=== PATIENT | male | born 1990 | race Two or more races ===

== ENCOUNTER → 2016-11-23 | Outpatient (REF) | payer OTHER | LOC: M SMT 17:58 | PROVIDERS: ATTEND Urology | DX: Z30.2 Encounter for sterilization (principal) ==

== ENCOUNTER → 2017-02-02 | Outpatient (REF) | payer OTHER ==
[2017-02-02 15:36] LABS: IMMMOTILE SPERM CENTRIFUGED ABSENT (ABSENT); IMMOTILE SPERM ABSENT (ABSENT); MOTILE SPERM ABSENT (ABSENT); MOTILE SPERM CENTRIFUGED ABSENT (ABSENT)
== END ==
LOC: M SMT 13:10 → M LAB REF 13:10
PROVIDERS: ATTEND Urology
DX: Z30.2 Encounter for sterilization (principal)

== ENCOUNTER → 2017-07-28 | Outpatient (CLI) | payer OTHER ==
[~2017-07-28] MED LIST: PROHANCE 279.3MG/ML 15ML VIAL (A9576) As Ordered
== END ==
LOC: M RAD 10:11
DX: E34.8 Other specified endocrine disorders (principal)
CPT/HCPCS: A9576

== ENCOUNTER → 2017-08-16 | Outpatient (REF) | payer OTHER ==
[2017-08-16 14:42] LABS: TOTAL 25(OH) VITAMIN D 30.4 NG/ML (30.0-100.0)
[2017-08-16 14:43] LABS: FOLATE 7.9 NG/ML; TOTAL T3 103.9 NG/DL (60.0-181.0); VITAMIN B12 LEVEL 505 PG/ML
[2017-08-16 14:54] LABS: FREE T4 1.09 NG/DL (0.76-1.46); RHEUMATOID FACTOR QUANT < 10.0 IU/ML (0-15.0); TOTAL PROTEIN 7.7 GM/DL (6.4-8.2)
[2017-08-16 14:54] LABS: CPK CREATINE PHOSPHOKINASE 69 U/L (39-308)
[2017-08-16 15:36] LABS: ERYTHROCYTE SEDIMENTATION RATE 2 mm/hr (0-15)
[2017-08-17 11:29] LABS: ALBUMIN 4.88 GM/DL (3.29-5.55); ALBUMIN % 63.4 % (55.8-66.1); ALPHA-1-GLOBULIN % 3.7 % (2.9-4.9); ALPHA-1-GLOBULINS 0.28 GM/DL (0.17-0.41); ALPHA-2-GLOBULINS 0.58 GM/DL (0.42-0.99); ALPHA-2-GLOBULINS % 7.5 % (7.1-11.8); BETA-1-GLOBULINS % 5.2 % (4.7-7.2); BETA-2-GLOBULINS 0.32 GM/DL (0.19-0.55); BETA-2-GLOBULINS % 4.1 % (3.2-6.5); GAMMA GLOBULIN % 16.1 % (11.1-18.8); GAMMA GLOBULINS 1.24 GM/DL (0.65-1.58)
== END ==
LOC: M LABNEURO 09:56
DX: G35 Multiple sclerosis (principal); G70.00 Myasthenia gravis without (acute) exacerbation; G72.9 Myopathy, unspecified
CPT/HCPCS: 82525